=== PATIENT | female | born 1980 | race African-American/Black ===

== ENCOUNTER → 2016-09-23 12:20 | Emergency (ER) | payer OTHER ==
[~2016-09-23 12:20] MED LIST: GABAPENTIN400 M2 PO; GLUCOPHAGE500 MG PO; LEVEMIR SQ; LISINOPRIL10 MG PO; METFORMIN PO; OMEPRAZOLE20 M2 PO; SIMVASTATIN10 MG PO
== END | disposition left against medical advice (07) ==
LOC: CED 12:20
DX: Z53.21 Procedure and treatment not carried out due to patient leaving prior to being seen by health care provider (principal)

== ENCOUNTER 2016-11-23 06:50 | Inpatient (IN) | payer OTHER ==
--- NOTE | ~2016-11-23 | EKG ---
PATIENT: DANNY SZYMANSKI UNIT #: [id number] Ventricular Rate: 69 BPM Atrial Rate: 69 BPM P-R Interval: 152 ms QRS Duration: 92 ms Q-T Interval: 404 ms QTC Calculation(Bezet): 432 ms P [place]: 43 degrees Calculated R [place]: -2 degrees Calculated T [place]: -4 degrees Diagnosis Line: Normal sinus rhythm Diagnosis Line: Voltage criteria for left ventricular hypertrophy Diagnosis Line: ST elevation, consider early repolarization, Diagnosis Line: pericarditis, or injury Diagnosis Line: Abnormal ECG Diagnosis Line: When compared with ECG of 25-NOV-2015 08:21, Diagnosis Line: No significant change was found Diagnosis Line: Confirmed by ABEBE HAWKINS MD ([id number]) on Diagnosis Line: 11/23/2016 4:15:50 PM INTERPRETING MD: DARCY
--- NOTE | ~2016-11-23 | OR ---
Unit #: [id number] #: [id number] Patient: DANNY SZYMANSKI [id number] [facility]. [place], [place] [address] [id number] Rosanne MR#: [id number] NAME: DANNY SZYMANSKI ROOM: Date of Procedure: 11/23/2016 Admission Date: 11/23/2016 Surgeon: Chepe Harrington III, M.D. : 1980 Attending Physician: Chepe Harrington III, M.D. Primary Care Physician: Jessi Valdez M.D. OPERATIVE REPORT PREOPERATIVE DIAGNOSIS Lap-band intolerance. POSTOPERATIVE DIAGNOSIS Lap-band intolerance. PROCEDURE PERFORMED Laparoscopic removal of adjustable gastric band and port. ANESTHESIA General. SPECIMENS None. COMPLICATIONS None apparent. ESTIMATED BLOOD LOSS Minimal. INDICATIONS FOR PROCEDURE This is a 36-year-old lady, who has ongoing vomiting despite her lap-band being widely open and no abnormalities seen on upper GI or EGD. She desires to have the band removed. DESCRIPTION OF PROCEDURE After consent was obtained, the patient was brought to the operating room and placed in the supine position. General anesthetic was administered and her abdomen was prepped and draped in standard surgical fashion. I made a 1 cm incision in the left upper quadrant. I used a Visiport to enter into the peritoneal cavity without any difficulty. CO2 pneumoperitoneum was then established. Next, I cut down on her port site and dissected the port free from the surrounding tissue. I then removed the port and the mesh holding the port in place as well as the 0 Ethibond stay suture. I then trimmed the excess band tubing and used a Visiport to enter into the peritoneal cavity. I then placed a 5-mm trocar in the left lateral subcostal region. I was able to easily follow the tubing up to the stomach. I then dissected the capsule around from the band. There was no abnormality of the band noted. It seemed to be in the proper location. Once I had it exposed, I unbuckled it and divided the band in two. I removed all components of the band. I had excellent hemostasis Unit #: [id number] #: [id number] Patient: DANNY SZYMANSKI and all needle, sponge, and instrument counts were correct x2. I removed the trocars and released the pneumoperitoneum. I injected all the port sites with 0.25% plain Marcaine. I reapproximated the skin edges with interrupted 4-0 Vicryl subcuticular suture. Steri-Strips were then applied. The patient tolerated the procedure without any problems and returned to the recovery room in stable condition. Dictated by... Chepe Harrington III, M.D. VCL/eugenia TD: 11/23/2016 16:19 JOB #: [id number] OPERATIVE REPORT Page 1 of 1 X Chepe Harrington III, MD PROCEDURE OPERATIVE NOTE
[2016-11-23 08:02] LABS: BUN/CREATININE RATIO 7.5; CREATININE SERUM 0.8 mg/dL (0.6-1.4); GLOM FILT RATE Estimated 109.3 mL/min (>60); POTASSIUM 3.6 mmol/L (3.5-5.1)
== END 2016-11-23 12:55 | disposition home or self-care (01) | DRG 988 ==
LOC: CSUR 06:50 → CPACUOF 09:02 → CSUR 10:00 → CPACUOF 12:55
PROVIDERS: Surgery
PROC: 0DP64CZ Removal of Extraluminal Device from Stomach, Percutaneous Endoscopic Approach (ICD-10-PCS; principal; 2016-11-23 10:00)
DX: K95.09 Other complications of gastric band procedure (principal); Z68.41 Body mass index [BMI] 40.0-44.9, adult; I10 Essential (primary) hypertension; R11.10 Vomiting, unspecified; Z88.0 Allergy status to penicillin; E66.01 Morbid (severe) obesity due to excess calories; E11.9 Type 2 diabetes mellitus without complications; G40.909 Epilepsy, unspecified, not intractable, without status epilepticus; Z90.710 Acquired absence of both cervix and uterus; Z90.49 Acquired absence of other specified parts of digestive tract
CPT/HCPCS: 80048; 82947; 93005; J0330; J2250; J2405; J2710; J3010